=== PATIENT | female | born 1995 | race Caucasian/White ===

== ENCOUNTER 2017-08-12 19:15 | Emergency (ER) | payer OTHER ==
[~2017-08-12] VITALS: Ht 149.9 cm; Wt 56.0 kg
[2017-08-12 19:18] VITALS: Ht 149.9 cm; Wt 56.0 kg
[2017-08-12] MEDS ORDERED: IBUPROFEN 600 MG TAB PO ONE (20:00)
[2017-08-12] MEDS ORDERED: LIDOCAINE 1% (MDV) 20 ML INJ SC ONE (20:00)
[2017-08-12] MEDS ORDERED: IBUP400T22 PO (20:20)
--- NOTE | 2017-08-12 20:23 | ERD ---
ER Documentation Chief Complaint Date/Time DATE: 08/12/17 TIME: 20:21 Chief Complaint c/o right big toe ingrown nail x 2 wks. HPI This 21-year-old female complains of pain and redness around her presumably ingrown toenail for last 2 weeks patient has a history of trauma, fevers. She denies any previous treatment for ingrown toenails. ROS All systems reviewed and are negative except as per history of present illness. Medications Home Meds Active Scripts Ibuprofen* (Motrin*) 400 Mg Tab, 400 MG PO Q6, #15 TAB Prov:TAWANA MACIEL MD 08/12/17 PMhx/Soc Medical and Surgical Hx: pt denies Medical Hx, pt denies Surgical Hx History of Surgery: No Anesthesia Reaction: No Hx Neurological Disorder: No Hx Respiratory Disorders: No Hx Cardiac Disorders: No Hx Psychiatric Problems: No Hx Miscellaneous Medical Probl: No Hx Alcohol Use: No Hx Substance Use: No Hx Tobacco Use: No Smoking Status: Never smoker Physical Exam Vitals Vital Signs Date Time Temp Pulse Resp B/P Pulse Ox O2 Delivery O2 Flow Rate FiO2 08/12/17 19:18 98.4 69 18 115/79 100 Physical Exam Const: [] Alert, [id number]. Head: Atraumatic Eyes: Normal Conjunctiva ENT: Normal External Ears, Nose and Mouth. Neck: Full range of motion..~ No meningismus. Resp: Clear to auscultation bilaterally Cardio: Regular rate and rhythm, no murmurs Abd: Soft, non tender, non distended. Normal bowel sounds Skin: No petechiae or rashes Back: No midline or flank tenderness Ext: No cyanosis, or edema is some redness and slight swelling associated with ingrown toenail on the right big toe. There is no significant erythema, streaking and no bony tenderness or deformities. Neur: Awake and alert Psych: Normal Mood and Affect Results 24 hrs Current Medications Medications (Trade) Dose Ordered Sig/Silvano Route PRN Reason Start Time Stop Time Status Last Admin Dose Admin Ibuprofen (Motrin) 600 mg ONCE ONCE PO 08/12/17 20:00 08/12/17 20:01 DC 08/12/17 20:09 Lidocaine (Xylocaine 1% (Mdv) 20 ml) 20 ml ONCE ONCE SC 08/12/17 20:00 08/12/17 20:01 DC Procedures/MDM Presents with signs of symptoms of right big ingrown toenail. Procedure note-the right big toe was prepped with Betadine. 3 cc of lidocaine was used to perform digital block. Anesthesia was obtained. Bilateral edges of ingrown nail was removed and patient tolerated procedure well. Wound was dressed. There is no evidence of osteomyelitis, abscess, foreign body, significant cellulitis. She will discharged home with prescription for ibuprofen instructions for wound care and return precautions. The patient was stable with no new complaints during the ER course. Clinically, there is no current evidence to suggest meningitis, sepsis, acute abdomen, pneumonia, acute coronary syndrome, pulmonary embolism, or any other emergent condition appearing to require further evaluation or hospitalization. The patient should certainly return for any new or worsening symptoms per the aftercare instructions. They should otherwise follow-up with her primary care doctor for reevaluation this week. Disclaimer: Inadvertent spelling and grammatical errors are likely due to EHR/dictation software use and do not reflect on the overall quality of patient care. Also, please note that the electronic time recorded on this note does not necessarily reflect the actual time of the patient encounter. Departure Diagnosis: Primary Impression: Ingrown toenail Condition: Stable Patient Instructions: Ingrown Toenail, Excised Additional Instructions: For redness, swelling, fevers, new or worsening symptoms. TAWANA MACIEL MD Aug 12, 2017 20:23
== END 2017-08-12 20:37 | disposition home or self-care (01) ==
LOC: FTE 19:15
DX: L60.0 Ingrowing nail (principal)
CPT/HCPCS: 11750; Z7502; Z7610

== ENCOUNTER 2019-02-27 10:41 | Emergency (ER) | payer OTHER ==
[~2019-02-27] VITALS: Ht 149.9 cm; Wt 62.2 kg
[~2019-02-27 10:41] MED LIST: IBUP-1561 PO
[2019-02-27 10:55] VITALS: BP 127/77; PULSE 88; RESP 18; Ht 149.9 cm; Wt 62.2 kg
--- NOTE | 2019-02-27 11:57 | ERD ---
ER Documentation Chief Complaint Chief Complaint cough & fever 1wk HPI 23-year-old healthy female no past medical or surgical history who presents with 1 week complaint of cough and fever. Reports a single episode of subjective fever on Wednesday. Has had a cough since Wednesday productive of yellowish greenish sputum. Also with rhinorrhea and generalized malaise. Had a couple episodes of mild nosebleed. She otherwise denies nausea, vomiting, diarrhea, abdominal pain. Time of examination she is nontoxic appearing with stable triage vital signs with no fever. ROS All systems reviewed and are negative except as per history of present illness. Medications Home Meds Active Scripts Ibuprofen* (Motrin*) 400 Mg Tab, 400 MG PO Q6, #15 TAB Prov:TAWANA MACIEL MD 08/12/17 Allergies Allergies: Coded Allergies: No Known Allergy (Unverified , 02/27/19) PMhx/Soc History of Surgery: No Anesthesia Reaction: No Hx Neurological Disorder: No Hx Respiratory Disorders: No Hx Cardiac Disorders: No Hx Psychiatric Problems: No Hx Miscellaneous Medical Probl: No Hx Alcohol Use: No Hx Substance Use: No Hx Tobacco Use: No Smoking Status: Never smoker FmHx Family History: No diabetes, No coronary disease, No other Physical Exam Vitals Vital Signs Date Temp Pulse Resp B/P (MAP) Pulse Ox O2 O2 Flow FiO2 Time Delivery Rate 02/27/19 98.2 88 18 127/77 100 10:55 (94) Physical Exam I have reviewed the triage vital signs. Const: Well nourished, well developed, appears stated age Eyes: PERRL, no conjunctival injection HENT: NCAT, Neck supple without meningismus CV: RRR, Warm, well-perfused extremities RESP: CTAB, Unlabored respiratory effort GI: soft, non-tender, non-distended, no masses MSK: No gross deformities appreciated Skin: Warm, dry. No rashes Neuro: grossly non focal Psych: Appropriate mood and affect. Procedures/MDM 23-year-old female presents with subjective fevers and cough. The patient's clinical presentation is very consistent with an acute viral syndrome. No evidence of pneumonia. The patient is well-appearing without respiratory distress. Normal oxygen saturation. X-ray imaging not indicated. No indication for Tamiflu. The patient does not exhibit any clinical signs or symptoms concerning for serious bacterial infection or systemic illness. Based on history and clinical exam findings the patient does not appear to have evidence of pneumonia, strep pharyngitis, urinary tract infection, bacteremia, sepsis, or meningitis. For these reasons I do not believe it is necessary to obtain laboratory testing or diagnostic imaging. I believe it would be appropriate for symptom control, and close outpatient primary care follow-up. Tylenol for fevers We discussed follow up with the patient's primary care doctor within 24 to 48 hours as needed. We also discussed return to the emergency room for worsening symptoms or worsening condition. DISPOSITION PLAN: We discussed follow up with the patient's primary care doctor within 24 to 48 hours. Patient counseled regarding my diagnostic impression and care plan. Prior to discharge all questions answered. Pt agrees with treatment plan and understands strict return precautions. Precautionary instructions provided including instructions to return to the ER if not improving or for any worsening or changing symptoms or concerns. Departure Condition: Stable Patient Instructions: Viral Syndrome (Adult) JONNY LAIRD PA-C Feb 27, 2019 11:57
[2019-02-27] MEDS ORDERED: GUAI-637 PO (11:58)
[2019-02-27] MEDS ORDERED: ACET500C5 PO (11:58)
== END 2019-02-27 12:16 | disposition home or self-care (01) ==
LOC: FTE 10:41
DX: B34.9 Viral infection, unspecified (principal)
CPT/HCPCS: 99282